=== PATIENT | female | born 1980 | race African-American/Black ===

== ENCOUNTER 2017-10-02 20:18 | Observation (INO) ==
[2017-10-02 20:51] LABS: Basophils % 0.5 % (0.0-0.8); Eosinophils # 0.1 10*3/uL (0.0-0.87); Eosinophils % 1.1 % (0.00-10.9); Hematocrit 38.1 VOL% (35.7-47.0); Hemoglobin 12.6 GM/DL (12.0-16.0); Immature Granulocytes % 0.4 %; Immature Granulocytes Absolute 0.03 #; Lymphocytes # 2.1 10*3/uL (1.4-4.0); Lymphocytes % 26.2 % (21.3-54.2); Mean Corpuscular HGB Conc 33.1 GM/DL (32-36); Mean Corpuscular Hemoglobin 31 PG (27-34); Mean Corpuscular Volume 94.5 FL (87-102); Mean Platelet Volume 9.7 FL (9.6-12.0); Monocytes # 0.4 10*3/uL (0.11-0.8); Monocytes % 5.5 % (1.7-12.7); Neutrophils # 5.2 10*3/uL (1.4-7.4); Neutrophils % 66.3 % (38.7-73.9); Platelet Count 386 T/CUMM (130-400); Red Blood Count 4.03 MC/CUMM (3.8-5.5); Red Cell Distribution Width 13.2 % (9.3-17.3); White Blood Count 7.8 T/CUMM (4-12)
[2017-10-02 21:04] LABS: INR 0.9; PT Patient Result 9.9 SECS
[2017-10-02 21:15] LABS: Alanine Aminotransferase 32 U/L (13-56); Albumin 3.3 G/DL (3.4-5.0); Alkaline Phosphatase 172 U/L (45-117); Aspartate Amino Transferase 56 U/L (0-37); Blood Urea Nitrogen 8 MG/DL (7-18); Calcium 8.8 MG/DL (8.5-10.1); Glucose 114 MG/DL (74-106); Osmolality,Calculated 275.5 MOS/KG (273-304); Potassium 4.3 MMOL/L (3.5-5.1); Sodium 139 MMOL/L (136-145); Total Protein 6.7 G/DL (6.4-8.3); Troponin I Only < 0.015 NG/ML (0.00-0.045)
[2017-10-02] MEDS ORDERED: ONDANSETRON ODT 4 MG TABLET PO STA (23:09)
[2017-10-02] MEDS ORDERED: ONDANSETRON ODT 4 MG TABLET PO ONE (23:13)
[2017-10-03 00:38] LABS: Apearance,Urine Slightly Hazy (Clear); Bacteria,Urine Moderate /HPF (Few); Bilirubin,Urine Negative (Negative); Blood, Urine Small mg/dL (Negative); Glucose,Urine (UA) Negative (Negative); Ketones,Urine Negative (Negative); Mucus,Urine Few /LPF (Occasional); Nitrite,Urine Negative (Negative); Protein,Urine Negative; RBC,Urine <1 /HPF (0-4); Squamous Epithelial Cell,Urine Occasional /HPF (0-10); Urine Color Yellow (Yellow); Urine Specific Gravity 1.021 (1.001-1.035); Urine Urobilinogen < 2.0 EU/DL (0.2-1.0); WBC,Urine 4 /HPF (0-6)
[2017-10-03] MEDS ORDERED: hydrALAZINE 20 MG/1 ML VIAL IV ONE (03:39)
[2017-10-03] MEDS ORDERED: hydrALAZINE 20 MG/1 ML VIAL ONE (03:41)
[2017-10-03] MEDS ORDERED: HYDROcodone/HOMATROPINE 5 ML UDCUP PO PRN (05:45)
[2017-10-03 08:05] LABS: Risk Ratio 2.25; VLDL CHOLESTEROL 23.4 MG/DL
[2017-10-03] MEDS ORDERED: PANTOPRAZOLE 40 MG TABLET PO SCH (09:00)
[2017-10-03] MEDS ORDERED: MULTIVITAMIN (CENTRUM) TABLET PO SCH (09:00)
[2017-10-03] MEDS ORDERED: CALCIUM (CITRATE) 200 MG TABLET PO SCH (09:00)
[2017-10-03] MEDS ORDERED: ASPIRIN EC 325 MG TABLET PO SCH (09:00)
[2017-10-03] MEDS ORDERED: ONDANSETRON 4 MG/2 ML VIAL IV PRN (11:45)
[2017-10-03 12:21] VITALS: BP 114/66
[2017-10-03 14:25] LABS: Barbiturates Screen,Urine Negative (Negative); Benzodiazepines Screen,Urine Negative (Negative); Cannabinoid Screen,Urine Negative (Negative); Opiate Screen,Urine Positive (Negative); Phencyclidine Screen,Urine Negative (Negative)
[2017-10-03] MEDS ORDERED: Norgestimate-Ethinyl Estradiol [Tri-Sprintec Tablet] PO SCH (21:00)
== END 2017-10-03 14:50 | disposition home or self-care (01) ==
LOC: N.ED 20:18 → N.EDINP 20:18 → N.TELEN 10-03 04:00